=== PATIENT | male | born 1975 | race Caucasian/White ===

== ENCOUNTER 2023-02-14 10:31 | Emergency (ER) | payer BC ==
[2023-02-14] MEDS ORDERED: Orphenadrine 60 MG/2 ML Inj IM ONE (11:21)
[2023-02-14] MEDS ORDERED: Ketorolac 60 MG/2 ML SDV IM ONE (11:21)
== END 2023-02-14 13:15 | disposition home or self-care (01) ==
LOC: MW.ED 10:31
DX: S06.0X0A Concussion without loss of consciousness, initial encounter (principal); S06.5X0A Traumatic subdural hemorrhage without loss of consciousness, initial encounter; S16.1XXA Strain of muscle, fascia and tendon at neck level, initial encounter; I10 Essential (primary) hypertension; Z76.0 Encounter for issue of repeat prescription; V00.321A Fall from snow-skis, initial encounter; Y93.23 Activity, snow (alpine) (downhill) skiing, snowboarding, sledding, tobogganing and snow tubing
CPT/HCPCS: 70450; 72125; 96372; 99283; J1885; J2360